=== PATIENT | female | born 1995 | race Caucasian/White ===

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

== ENCOUNTER 2018-05-04 12:17 | Day surgery (SDC) | payer MEDICAID ==
[2018-05-04] MEDS ORDERED: HYDROmorphone 0.5 MG/0.5 ML Syringe IVPUSH ONE (12:18)
[2018-05-04] MEDS ORDERED: Propofol 200 MG/20 ML SDV IV ONE (12:18)
[2018-05-04] MEDS ORDERED: Glycopyrrolate 0.2 MG/ML 2 ML SDV IV ONE (12:18)
[2018-05-04] MEDS ORDERED: Ondansetron 4 MG/2 ML SDV IV ONE (12:18)
[2018-05-04] MEDS ORDERED: Dexamethasone 4 MG/ML SDV IV ONE (12:18)
[2018-05-04] MEDS ORDERED: fentaNYL 100 MCG/2 ML SDV IV ONE (12:18)
[2018-05-04] MEDS ORDERED: Ketorolac 30 MG/ML SDV IVPUSH ONE (12:18)
[2018-05-04] MEDS ORDERED: Midazolam 1 MG/ML 2 ML SDV IV ONE (12:18)
[2018-05-04] MEDS ORDERED: Sodium Chloride 0.9% 10 ML Syringe FLUSH PRN (12:52)
[2018-05-04] MEDS ORDERED: ceFAZolin 1 GM in Premix Bag 1 BAG IV ONE (12:52)
--- NOTE | 2018-05-04 12:58 | PCM.SN ---
- Free Text/Narrative Note: please sees attached dictation. will proceed w/ suction d&c for missed ab.
[2018-05-04] MEDS ORDERED: Lactated Ringers 1,000 ML IV SCH (13:00)
[2018-05-04] MEDS ORDERED: Ferric Subsulfate Topical Soln 8 GM (8 ML) Bottle ONE (13:22)
[2018-05-04] MEDS ORDERED: Silver Nitrate Applicator Each ONE (13:22)
[2018-05-04] MEDS ORDERED: Acetaminophen/HYDROcodone 325-5 MG Tab PO PRN (15:12)
[2018-05-04] MEDS ORDERED: HYDROmorphone 1 MG/ML Syringe ONE (15:54)
[2018-05-04 17:52] VITALS: BP 124/63
--- NOTE | 2018-05-07 09:39 | OR ---
DATE: 05/04/2018 PREOPERATIVE DIAGNOSIS: This is a missed at roughly 9 to 10 weeks gestational age. POSTOPERATIVE DIAGNOSIS: This is a missed at roughly 9 to 10 weeks gestational age. PROCEDURE: Suction D and C. ANESTHESIA: General. FINDINGS: Products of conception. PATHOLOGY: Products of conception. ESTIMATED BLOOD LOSS: Roughly 300 mL. PROCEDURE IN DETAIL: The patient had 2 ultrasounds now which did confirm no heart tones. She was offered conservative management or Cytotec. She did desire suction D and C. She was taken to the operating room, where she was prepped and draped in the usual sterile fashion with her legs in Jose stirrups. A weighted speculum was placed in the vagina. Cervix was grasped with a tenaculum and the cervix was gently dilated to the largest dilator. I initially tried to place a 10 mm curved suction, that would not fit, therefore I did place the 8 mm curved suction, suctioned out some of the uterine contents. I did use a curette to start to create a gritty texture to the uterus, but there were definitely some remaining products, therefore I did take the [place] and gently dilated her cervix with that. I was able to then place the 10 mm suction and the remainder of the uterine contents were suctioned out. Again, curette created a gritty texture to the entire uterus and there was no more bleeding. Therefore, the single-tooth tenaculum was removed, weighted speculum was removed. The patient tolerated the procedure well. Sponge, lap, needle counts were correct x2. The patient was taken to the recovery room in stable condition. We will send the products of conception for pathology. [facility] /[id number] LYDIA
== END 2018-05-04 17:53 | disposition home or self-care (01) ==
LOC: DL.SDS 12:17 → DL.MS 16:18 → DL.SDS 17:53
PROVIDERS: ATTEND Obstetrics & Gynecology
DX: O02.1 Missed abortion (principal); F17.290 Nicotine dependence, other tobacco product, uncomplicated
CPT/HCPCS: 36415; 59820; 84703; 85025; 86850; 86900; 86901; A9270; J0690; J1100; J1170; J1885; J2250; J2405; J2704; J3010; J3490; J7120

== ENCOUNTER 2018-07-10 11:15 | Emergency (ER) | payer MEDICAID ==
[2018-07-10 11:26] VITALS: BP 111/70
[2018-07-10] MEDS: Sodium Chloride 0.9% 1,000 ML IV ONE (12:01)
[2018-07-10] MEDS: Sodium Chloride 0.9% 10 ML Syringe FLUSH PRN (12:01)
[2018-07-10] MEDS: Ondansetron 4 MG/2 ML SDV IV ONE (12:05)
--- NOTE | 2018-07-10 12:06 | EDM.PDOC ---
ED HPI GENERAL MEDICAL PROBLEM - General Chief Complaint: Gastrointestinal Problem Stated Complaint: COLD SWEATS,PUKING,SICK [id number] Time Seen by Provider: 07/10/18 11:50 Source of Information: Reports: Patient, Family, RN, RN Notes Reviewed History Limitations: Reports: No Limitations - History of Present Illness INITIAL COMMENTS - FREE TEXT/NARRATIVE: Pt to ER with c/o vomiting several times today. Patient states she is 6 weeks and has had some nausea but today has vomited x4. She states she tried to have a popsicle and has been sipping water, but has not been able to keep anything down. Last time she ate food was last evening, porkchop and pasta. No one else around her with any vomiting or diarrhea. She denies diarrhea. States she is unsure of fever but feels warm at times and then has cold sweats. Denies any other recent illness. 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 ASSISTANT History: Reports: None Other Musculoskeletal History: RIGHT WRIST FX Neurological History: Reports: None Psychiatric History: Reports: Addiction, Depression, Emotional Problems, Suicide Attempt, Suicidal Ideation Endocrine/Metabolic History: Reports: None Hematologic History: Reports: None Immunologic History: Reports: None Oncologic (Cancer) History: Reports: None - Infectious Disease History Infectious Disease History: Reports: None - Past Surgical History Head Surgeries/Procedures: Reports: None Female Surgical History: Reports: D&C Social & Family History - Family History Family Medical History: Noncontributory - Tobacco Use Smoking Status *Q: Former Smoker Used Tobacco, but Quit: Yes Month/Year Tobacco Last Used: ? - Caffeine Use Caffeine Use: Reports: Coffee - Recreational Drug Use Recreational Drug Use: No - Living Situation & Occupation Living situation: Reports: with Family ED ROS GENERAL - Review of Systems Review Of Systems: ROS reveals no pertinent complaints other than HPI. ED EXAM, GI/ABD - Physical Exam Exam: See Below Exam Limited By: No Limitations General Appearance: Alert, WD/WN, No Apparent Distress Eyes: Bilateral: Normal Appearance, EOMI Ears: Normal External Exam, Hearing Grossly Normal Nose: Normal Inspection Throat/Mouth: Normal Inspection, Normal Voice, No Airway Compromise Head: Atraumatic, Normocephalic Neck: Normal Inspection, Supple, Non-Tender, Full Range of Motion Respiratory/Chest: No Respiratory Distress, Lungs Clear, Normal Breath Sounds, No Accessory Muscle Use, Chest Non-Tender Cardiovascular: Normal Peripheral Pulses, Regular Rate, Rhythm, No Edema, No Gallop, No JVD, No Murmur, No Rub GI/Abdominal Exam: Normal Bowel Sounds, Soft, No Organomegaly, No Distention, No Abnormal Bruit, No Mass, Tender (Female) Exam: Deferred Rectal (Female) Exam: Deferred Back Exam: Normal Inspection, Full Range of Motion, NT Extremities: Normal Inspection, Normal Range of Motion, Non-Tender, Normal Capillary Refill, No Pedal Edema Neurological: Alert, Oriented, CN II-XII Intact, Normal Cognition, Normal Gait, Normal Reflexes, No Motor/Sensory Deficits Psychiatric: Normal Affect, Normal Mood Skin Exam: Warm, Dry, Intact, Normal Color, No Rash Lymphatic: No Adenopathy Course - Vital Signs Last Recorded V/S: Last Vital Signs Temp 97.8 F 07/10/18 11:24 Pulse 86 07/10/18 11:24 Resp 16 07/10/18 11:24 BP 111/70 07/10/18 11:24 Pulse Ox 100 07/10/18 11:24 - Orders/Labs/Meds Orders: Active Orders 24 hr Category Date Time Status Peripheral IV Care [RC] . DIRECTED Care 07/10/18 11:52 Active Sodium Chloride 0.9% [Normal Saline] 1,000 ml Med 07/10/18 11:51 Active IV .BOLUS Sodium Chloride 0.9% [Saline Flush] Med 07/10/18 11:51 Active 10 ml FLUSH ASDIRECTED PRN Peripheral IV Insertion Adult [OM.PC] Stat Oth 07/10/18 11:51 Ordered Medication Orders Sodium Chloride (Normal Saline) 1,000 mls @ 999 mls/hr IV .BOLUS ONE Stop: 07/10/18 12:51 Last Admin: 07/10/18 12:01 Dose: 999 mls/hr Sodium Chloride (Saline Flush) 10 ml FLUSH ASDIRECTED PRN PRN Reason: Keep Vein Open Last Admin: 07/10/18 12:01 Dose: 10 ml Meds: Medications Generic Name Dose Route Start Last Admin Trade Name Aaliyah PRN Reason Stop Dose Admin Sodium Chloride 1,000 mls @ 999 mls/hr 07/10/18 11:51 07/10/18 12:01 Normal Saline IV 07/10/18 12:51 999 mls/hr .BOLUS ONE Administration Sodium Chloride 10 ml 07/10/18 11:51 07/10/18 12:01 Saline Flush FLUSH 10 ml ASDIRECTED PRN Administration Keep Vein Open Discontinued Medications Generic Name Dose Route Start Last Admin Trade Name Aaliyah PRN Reason Stop Dose Admin Ondansetron HCl 4 mg 07/10/18 11:51 07/10/18 12:05 Zofran IV 07/10/18 11:52 4 mg ONETIME ONE Administration Departure - Departure Time of Disposition: 12:27 Disposition: Home, Self-Care 01 Condition: Fair Clinical Impression: Vomiting Qualifiers: Weeks of gestation: less than 8 weeks Qualified Code(s): Z3A.01 - Less than 8 weeks gestation of - Discharge Information *PRESCRIPTION DRUG MONITORING PROGRAM REVIEWED*: No *COPY OF PRESCRIPTION DRUG MONITORING REPORT IN PATIENT ASCENCION: No Instructions: First Trimester of , Kxji-[id number], Nausea and Vomiting, Adult, Vyfl-[id number] Forms: ED Department Discharge Additional Instructions: Small sips of water frequently Follow up with your primary care facility RX: Reglan - My Orders Last 24 Hours: My Active Orders 07/10/18 11:51 Sodium Chloride 0.9% [Normal Saline] 1,000 ml IV .BOLUS Sodium Chloride 0.9% [Saline Flush] 10 ml FLUSH ASDIRECTED PRN Peripheral IV Insertion Adult [OM.PC] Stat 07/10/18 11:52 Peripheral IV Care [RC] . DIRECTED - Assessment/Plan Last 24 Hours: My Active Orders 07/10/18 11:51 Sodium Chloride 0.9% [Normal Saline] 1,000 ml IV .BOLUS Sodium Chloride 0.9% [Saline Flush] 10 ml FLUSH ASDIRECTED PRN Peripheral IV Insertion Adult [OM.PC] Stat 07/10/18 11:52 Peripheral IV Care [RC] . DIRECTED
== END 2018-07-10 12:30 | disposition home or self-care (01) ==
LOC: DL.ED 11:15
DX: O21.9 Vomiting of pregnancy, unspecified (principal); Z3A.01 Less than 8 weeks gestation of pregnancy; Z79.899 Other long term (current) drug therapy; Z87.891 Personal history of nicotine dependence
CPT/HCPCS: 96374; 99283; J2405; J7030

== ENCOUNTER → 2018-08-20 | Outpatient (CLI) | payer MEDICAID | LOC: DL.US 12:21 | PROVIDERS: ATTEND Obstetrics & Gynecology | DX: O99.89 Other specified diseases and conditions complicating pregnancy, childbirth and the puerperium (principal); R10.9 Unspecified abdominal pain; Z87.59 Personal history of other complications of pregnancy, childbirth and the puerperium | CPT/HCPCS: 76815 ==

== ENCOUNTER 2020-09-05 08:49 | Inpatient (IN) | payer MEDICAID ==
[2020-09-05] MEDS ORDERED: Tranexamic Acid 1,000 MG in Sodium Chloride 0.9% 100 ML IV PRN (09:45)
[2020-09-05] MEDS ORDERED: Sodium Chloride 0.9% 10 ML Syringe FLUSH PRN ×2 (09:45→12:46)
[2020-09-05] MEDS ORDERED: Oxytocin/Normal Saline 30 UNIT/500 ML BAG IV SCH ×2 (09:45→10:30)
[2020-09-05] MEDS ORDERED: Methylergonovine 0.2 MG/1 ML Amp IM PRN (09:45)
[2020-09-05] MEDS ORDERED: Misoprostol 400 MCG (4 X 100 MCG TAB) RECTAL PRN (09:45)
[2020-09-05] MEDS ORDERED: Lidocaine 1% 30 ML SDV INJECT PRN (09:45)
[2020-09-05] MEDS ORDERED: Lactated Ringers 1,000 ML IV SCH (09:45)
[2020-09-05] MEDS ORDERED: Acetaminophen 325 MG Tab PO PRN (09:45)
[2020-09-05] MEDS ORDERED: Ondansetron 4 MG/2 ML SDV IVPUSH PRN (09:45)
[2020-09-05] MEDS ORDERED: Carboprost Tromethamine 250 MCG/1 ML Amp IM PRN (09:45)
[2020-09-05] MEDS ORDERED: Lactated Ringers 1,000 ML IV ONE (09:45)
[2020-09-05] MEDS ORDERED: Nalbuphine 10 MG/1 ML Vial IM ONE (10:22)
[2020-09-05] MEDS: Lactated Ringers 1,000 ML IV SCH ×2 (11:16→12:01)
[2020-09-05] MEDS ORDERED: Sodium Bicarbonate 4.2% 2.5 MEQ/5 ML SDV ONE (11:46)
[2020-09-05] MEDS ORDERED: fentaNYL 100 MCG/2 ML SDV ONE (11:46)
[2020-09-05] MEDS ORDERED: EPINEPHrine 1 MG/1 ML Amp ONE (11:46)
--- NOTE | 2020-09-05 12:07 | PCM.SN.2 ---
- Free Text/Narrative Note: Intrathecal. Sitting position, sterile prep and drape. 1% lidocaine w bicarb for skinwheal to L2 L3 interspace. Introducer, 24 ga pencan x 1. 1:1000 pf epi wash,20 mcg pf sufenta, 30 mcg pf fentanyl, 0.4 ml pf NS and 6 mg of 0.75% pf Marcaine injected after CSF aspiration. Pt to L lateral position. Procedure time 1140 to 1210
--- NOTE | 2020-09-05 12:39 | PN ---
DATE: 09/05/2020 SUBJECTIVE: The patient still feels her contractions. She has now been moved to a regular room. COVID test was negative. OBJECTIVE: Pelvic: heart tones in the 120s and accelerations are seen within the last 10 to 15 minutes. Tocometer reveals contractions every 4 minutes at this point in time. Vaginal exam reveals her to be 4 cm, 85% effaced, 0 to +1 station, vertex suspected, and clear fluid emanating from the vaginal area. LABORATORY DATA: White cell count is 8.3, hemoglobin 11.4, platelets 144. COVID test negative. ASSESSMENT: Intrauterine at 39 and 2/7 weeks with spontaneous rupture of membranes with no cervical change. Suspect pre-labor rupture of membranes and we will start Pitocin. GBS negative with most likely gestational thrombocytopenia with platelets just minimally low at 144. PLAN: We will start Pitocin for pain management. She is requesting something for pain. We will start with Nubain 20 mg IM and follow clinically and closely thereafter. The patient understands and agrees with the above treatment plan. [facility] /[id number] MTDD
[2020-09-05] MEDS ORDERED: Simethicone 80 MG Tab.Chew PO PRN (12:46)
[2020-09-05] MEDS ORDERED: Oxytocin 10 Units/1 ML SDV IM PRN (12:46)
[2020-09-05] MEDS ORDERED: Benzocaine/Menthol 20%-0.5% Spray 78 GM Cannister TOP PRN (12:46)
[2020-09-05] MEDS ORDERED: Docusate Sodium 100 MG Cap PO PRN (12:46)
[2020-09-05] MEDS ORDERED: Zolpidem 5 MG Tab PO PRN (12:46)
--- NOTE | 2020-09-05 13:29 | DEL ---
DATE: 09/05/2020 PREOPERATIVE DIAGNOSES: 1. Intrauterine at 39-2/7 weeks by 5-6/7-week ultrasound. 2. Spontaneous rupture of membranes, with no significant cervical change, requiring Pitocin augmentation. 3. Group B streptococcus negative. 4. History of THC use in the . 5. Bacterial vaginosis in the , treated. 6. Gestational thrombocytopenia with platelets of 144,000. 7. Positive urine drug screen for THC. POSTOPERATIVE DIAGNOSES: 1. Intrauterine at 39-2/7 weeks by 5-6/7-week ultrasound - delivered. 2. Spontaneous rupture of membranes, with no significant cervical change, requiring Pitocin augmentation. 3. Group B streptococcus negative. 4. History of THC use in the . 5. Bacterial vaginosis in the , treated. 6. Gestational thrombocytopenia with platelets of 144,000. 7. Positive urine drug screen for THC. 8. Nuchal cord x2, reduced bluntly at delivery. PROCEDURE PERFORMED: Pitocin augmentation and spontaneous vaginal delivery on 09/05/2020. ANESTHESIA/ANALGESIA: The patient did receive Nubain in the first stage of labor as well as an intrathecal in the first stage of labor. ESTIMATED BLOOD LOSS: 200 mL. FINDINGS: Male, score and weight pending. Nuchal cord x2 reduced bluntly at delivery. SUMMARY OF EVENTS: The patient is a 25-year-old G3, P1-0-1-1, intrauterine at 39-2/7 weeks by 5-6/7-week ultrasound, admitted with spontaneous rupture of membranes. Did have some contractions, but no significant cervical global climate change analyst serial evaluations. She underwent Pitocin augmentation, Nubain IM for pain relief, and then requested intrathecal. She subsequently received an intrathecal. She was followed thereafter, was noted to be an anterior rim. As there were some early decelerations, I was called to the room, and upon my entry I donned sterile gown and gloves. The patient was found to be complete. The patient started pushing with contractions. vertex was delivered in AMBER presentation. Nuchal cord x2 was reduced bluntly at delivery, and anterior and posterior shoulder as well as rest of the infant delivered without difficulty. Mouth and nares were suctioned. Cord was doubly clamped and cut. Infant was resuscitated on mother's abdomen then brought over to warmer for further resuscitation. Then, approximately 10 mL of cord blood was obtained for labs. Placenta then delivered gently with cord traction and fundal massage within 5 to 10 minutes. Perineum, vagina, and perirectal areas were examined, without any lacerations. Small abrasion periurethral and first-degree, nonbleeding, not repaired after discussion with the patient. Mother and are currently stable at the time of dictation. [facility] /[id number]
--- NOTE | 2020-09-05 16:13 | HP ---
PATIENT IDENTIFICATION: Pedro Fernandez is a 25-year-old, G3, P1- 0-1-1, intrauterine at 39 and 2/7 weeks by 5 and 6/7 weeks ultrasound, who presents with vaginal leaking and contractions. HISTORY OF PRESENT ILLNESS: The patient states at 5:30 this morning, the patient was getting up to use the bathroom and noticed leaking of fluid from the vaginal area, described as clear in nature and increased over time to the point that it was soaking through her clothing. Associated with this has been contractions coming every 2 to 5 minutes, worsening over time, currently rate of 7 to 8 out of 10 on the pain scale, felt in the lower abdomen, radiating to the back. She denies any spotting or bleeding. To put this in context, she is GBS negative, has history of THC use in the and BV as well that was treated. Records called for, reviewed as below, and supplemented by patient history. OB HISTORY: 1. 02/03/2019, 37 and 1/7 weeks, delivered term male, spontaneous vaginal delivery. 2. In 04/2018, had a spontaneous . [facility]: ABO blood type O positive. Negative antibody. Rubella immune. Syphilis antibody is nonreactive. Negative hepatitis B surface antigen, hep C, HIV, GC and chlamydia. Wet prep initially had some BV and was treated, 1-hour GTT was 119 on 06/29/2020. Quad screen was not concerning and GBS was negative on 08/11/2020. MEDICATIONS: vitamins. ALLERGIES: None. PAST MEDICAL/PAST SURGICAL HISTORY: Remarkable for D and C in 04/2018 with a spontaneous . Past medical history of chlamydia in the distant past, ovarian cyst, depression, closed fracture of fifth metacarpal, history of chickenpox vaccination, has blood type O positive, and has history of molluscum as well as De Quervain's tenosynovitis. FAMILY HISTORY: Breast cancer in maternal great grandmother with breast and lung cancer in maternal grandmother. Depression and diabetes in maternal great grandmother. Maternal grandfather had emphysema. Maternal grandmother also had heart attack, heart disease, heart surgery and maternal great grandmother had lung cancer as above. Mother has neuropathy as well as endometriosis and thyroid disease. Unknown father's history. Negative family history of anesthesia or bleeding problems. SOCIAL HISTORY: The patient lives in the [facility]. Father of baby, Justus Stinson from [place], [place] is involved and present. The patient does admit to THC use earlier in the . No tobacco, alcohol, or other drug use elicited. REVIEW OF SYSTEMS: Otherwise reviewed and felt to be contributory for the above. OBJECTIVE: Vital Signs: Blood pressure 113/69, heart rate 71, temperature 97.7. Appearance: Female, appears stated age, acting appropriate for age, nontoxic appearance, breathing through contractions, but answering questions appropriately in between. HEENT: Head atraumatic. EOMs intact. PERRLA. No scleral icterus. No obvious otorhinorrhea. Mucous membranes are moist. Neck: No obvious tenderness. Lungs: Clear to auscultation bilaterally. No increased work of breathing. Heart: S1, S2. Regular rate and rhythm. Abdomen: Gravid. Bernardo's indeterminate. Nontender, nondistended. Bowel sounds positive. No organomegaly. : Exam done by nurse. Normal external female genitalia with clear fluid emanating from the vaginal area of 4 cm with vertex suspected. Extremities: No rebound, rigidity, or guarding. Trace pedal edema. Deep tendon reflexes 2/4 bilaterally and symmetric in lower extremities. Psychiatric: Mood and affect congruent. Judgment and insight intact. Skin: Without any cyanosis, clubbing, or jaundice. LABORATORY DATA: Pending is a COVID and CBC. heart tones in the 130s range with moderate variability. Tocometer reveals contractions every 2 to 4 minutes. ASSESSMENT: 1. Intrauterine at 39 and 2/7 weeks by 5 and 6/7 weeks ultrasound. 2. Spontaneous rupture of membranes with contractions, suspect labor. 3. GBS negative. 4. History of THC use in . 5. Bacterial vaginosis in , treated. 6. G3, P1-0-1-1. PLAN: The patient will be admitted. We will move her to a regular room once her COVID screen is negative and we will re-evaluate her cervix to see if she needs Pitocin and discussed pain management with the patient as well. She is interested in intrathecal, but also wants to time it correctly. [facility] /[id number]
[2020-09-05] MEDS: Ibuprofen 800 MG Tab PO PRN (18:02)
[2020-09-06] MEDS: Ibuprofen 800 MG Tab PO PRN (05:52)
[2020-09-06] MEDS ORDERED: Prenatal Multivitamin with Calcium/Folic Acid/Iron Tab PO SCH (09:00)
[2020-09-06 09:41] VITALS: BP 135/79; PULSE 75
--- NOTE | 2020-09-06 11:56 | DISCH ---
ADMIT DIAGNOSES: 1. Intrauterine at 39-2/7 weeks by 5-6/7 week ultrasound. 2. Spontaneous rupture of membranes with contractions. No significant cervical change, and Pitocin was given. 3. GBS negative. 4. History of THC use in the , positive urine drug screen upon admission. 5. Bacterial vaginosis in , treated. 6. Gestational thrombocytopenia, platelets of 144,000. 7. G3, P1-0-1-1. DISCHARGE DIAGNOSES: 1. Intrauterine at 39-2/7 weeks by 5-6/7 week ultrasound; delivered. 2. Spontaneous rupture of membranes with contractions. No significant cervical change, and Pitocin was given. 3. GBS negative. 4. History of THC use in the , positive urine drug screen upon admission. 5. Bacterial vaginosis in , treated. 6. Gestational thrombocytopenia, platelets of 144,000. 7. G3, P1-0-1-1. 8. Nuchal cord x2, reduced bluntly at delivery. 9. Gestational thrombocytopenia with platelets of 128,000 on the date of discharge. PROCEDURE PERFORMED: Pitocin and spontaneous vaginal delivery per Dr. Feliz on 09/05/2020. HISTORY OF PRESENT ILLNESS: Please see H and P. SUMMARY OF HOSPITAL COURSE: The patient was admitted on the above date with above diagnoses and underwent some Pitocin augmentation as she did not have significant cervical change with grossly rupture of membranes. Received pain management including Nubain and intrathecal, then went onto be found complete and went onto deliver a baby boy, male, scores 8 and 9, with weight of 3325 g (7 pounds 5 ounces). Nuchal cord x2 reduced bluntly at delivery noted. Please see delivery note for further details. day #1, date of discharge, the patient was tolerating p.o., ambulating, urinating, passing flatus, requesting discharge at 24 hours after delivery. DISCHARGE PHYSICAL EXAMINATION: Vital Signs: Temperature 97.8; heart rate 75; blood pressure 135/79, recheck 125/70, respiratory rate 18. Lungs: Clear to auscultation bilaterally. Heart: S1 and S2. Regular rate and rhythm. Abdomen: Firm uterus, -2 below umbilicus. Extremities: No peripheral edema. No calf pain. DISCHARGE LABS: White cell count 9.9, hemoglobin 11.1 compared to predelivery hemoglobin of 11.4, and platelets of 128,000. CONDITION ON DISCHARGE COMPARED TO CONDITION ON ADMISSION: Improved. DISCHARGE INSTRUCTIONS: 1. Diet as tolerated. 2. Activity: No lifting more than 20 pounds. No sit-ups or straining. Pelvic rest within the next 6 weeks with immediate return to fertility discussed with the patient. 3. Reason to return or go to the emergency room were discussed with the patient including, but not limited to temperature greater than 100.4, foul- smelling discharge, red or tender breasts, or increased vaginal bleeding. DISCHARGE MEDICATIONS: 1. [id number] ibuprofen for pain. 2. vitamins. FOLLOWUP: 6 weeks' . I did discuss with the patient in the interim reason to go to the emergency room in regard to her as well as the importance of followup and ramifications of not doing so. [facility] /[id number]
== END 2020-09-06 14:10 | disposition home or self-care (01) | DRG 806 ==
LOC: DL.OBCHECK 08:49 → DL.OB 09:45 → OBSVTOIN 12:31
PROVIDERS: ADMIT Family Medicine; ATTEND Family Medicine
PROC: 10E0XZZ Delivery of Products of Conception, External Approach (ICD-10-PCS; principal; 2020-09-05)
PROC: 3E0R3BZ Introduction of Anesthetic Agent into Spinal Canal, Percutaneous Approach (ICD-10-PCS; 2020-09-05)
PROC: 00HU33Z Insertion of Infusion Device into Spinal Canal, Percutaneous Approach (ICD-10-PCS; 2020-09-05)
DX: O99.324 Drug use complicating childbirth (principal); O99.12 Other diseases of the blood and blood-forming organs and certain disorders involving the immune mechanism complicating childbirth; Z37.0 Single live birth; D69.6 Thrombocytopenia, unspecified; Z3A.39 39 weeks gestation of pregnancy; F12.90 Cannabis use, unspecified, uncomplicated; O69.81X0 Labor and delivery complicated by cord around neck, without compression, not applicable or unspecified; Z20.822 Contact with and (suspected) exposure to COVID-19; Z28.82 Immunization not carried out because of caregiver refusal
CPT/HCPCS: 36415; 59409; 80305-QW; 85027; A9270-GY; J2300; J2405; J2590; J7120; U0002